=== PATIENT | male | born 1950 | race Caucasian/White ===

== ENCOUNTER 2022-09-18 09:47 | Outpatient (CLI) | payer BC ==
[2022-09-18 12:35] LABS: Hemoglobin 15.2 g/dL (13.5-17.5); Mean Corpuscular HGB CONC 35.1 g/dL (32.0-36.0); Mean Corpuscular Hemoglobin 30.2 pg (27.0-33.0); Mean Corpuscular Volume 86.1 fl (81.2-95.1); Mean Platelet Volume 11.9 fl (7.4-10.4); Platelet Count 258 10x3/uL (150-450); RBC Distribution Width 12.7 % (11.5-14.5); Red Blood Cell (RBC) Count 5.03 10x6/uL (4.32-5.72); White Blood Cell (WBC) Count 10.2 10x3/uL (3.5-10.5)
[2022-09-18 13:29] LABS: Anion Gap 20 mmol/L (10-20); BUN (Urea Nitrogen) 21 mg/dL (8.4-25.7); Calc. Creatinine Clearance 0 mL/min (70-130); Calcium 9.8 mg/dL (7.8-10.44); Carbon Dioxide 19 mmol/L (23-31); Chloride 101 mmol/L (98-107); Estimated GFR 59; Glucose 319 mg/dL (80-115); Potassium 5.1 mmol/L (3.5-5.1); Sodium 135 mmol/L (136-145)
== END 2022-09-18 09:48 | disposition home or self-care (01) ==
LOC: LABBT 09:47
PROVIDERS: ATTEND Orthopaedic Surgery
DX: Z01.818 Encounter for other preprocedural examination (principal); M19.012 Primary osteoarthritis, left shoulder
CPT/HCPCS: 80048; 85027; 93005; 93010